=== PATIENT | male | born 1985 | race African-American/Black ===

== ENCOUNTER 2022-04-21 16:06 | Inpatient (IN) | payer OTHER ==
[~2022-04-21] VITALS: Ht 185.4 cm; Wt 101.0 kg
[2022-04-21 17:34] LABS: BASOPHIL 0.9 % (0-2); EOSINOPHIL 0.2 % (0-5); HCT 48.5 % (42.0-52.0); LYMPHOCYTE 17.7 % (15-48); MONOCYTE 6.2 % (0-12); MPV 10.6 fL (6.0-9.5); NEUTROPHIL 74.5 % (41-80); NRBC 0; PLT 261 K/uL (150-400); RBC 5.51 M/uL (4.70-6.00); WBC 10.1 K/uL (4.0-10.5)
[2022-04-21 17:47] LABS: BILIRUBIN NEGATIVE (NEGATIVE); BLOOD 1+ Ery/uL (NEGATIVE); CLARITY CLEAR (CLEAR); COLOR YELLOW (YELLOW); GLUCOSE (U) 3+ mg/dL (NORMAL); LEUKOCYTES NEGATIVE Leu/uL (NEGATIVE); NITRITE NEGATIVE (NEGATIVE); PROTEIN 1+ mg/dL (NEGATIVE); SPECIFIC GRAVITY 1.025 (1.001-1.030); UROBILINOGEN 0.2 mg/dL (0.2-1.0)
[2022-04-21 18:04] LABS: BACTERIA TRACE; URINARY WBC RARE
[2022-04-21 18:40] LABS: BUN/CREAT RATIO (CALC) 22.9 RATIO; CREATININE 1.4 mg/dL (0.67-1.17); POTASSIUM 5.1 mmol/L (3.5-5.1)
[2022-04-21 21:09] LABS: BUN/CREAT RATIO (CALC) 22.6 RATIO; CREATININE 1.33 mg/dL (0.67-1.17); POTASSIUM 5.3 mmol/L (3.5-5.1)
[2022-04-21] MEDS ORDERED: CLARITIN10 MG PO (23:59)
[2022-04-22] MEDS ORDERED: CYCLOBENZAPRINE10 MG PO
[2022-04-22 00:42] LABS: BUN/CREAT RATIO (CALC) 20.6 RATIO; CREATININE 1.36 mg/dL (0.67-1.17); POTASSIUM 4.4 mmol/L (3.5-5.1)
[2022-04-22 05:44] LABS: BASOPHIL 0.4 % (0-2); EOSINOPHIL 0 % (0-5); HCT 46.6 % (42.0-52.0); HGB 15.1 g/dl (13.2-18.0); LYMPHOCYTE 9.3 % (15-48); MCH 28.8 pg (25.0-31.0); MCHC 32.4 g/dL (32.0-36.0); MCV 88.8 fL (78.0-100.0); MONOCYTE 6.2 % (0-12); MPV 10.9 fL (6.0-9.5); NEUTROPHIL 83.7 % (41-80); NRBC 0; PLT 282 K/uL (150-400); RBC 5.25 M/uL (4.70-6.00); RDW 12.2 % (11.5-14.0)
[2022-04-22 06:25] LABS: BUN/CREAT RATIO (CALC) 18.2 RATIO; CREATININE 1.48 mg/dL (0.67-1.17); POTASSIUM 5.7 mmol/L (3.5-5.1)
[2022-04-22 12:29] LABS: ALBUMIN 3.7 g/dL (3.4-5.0); BILIRUBIN - TOTAL 0.6 mg/dL (0.2-1.0); BUN/CREAT RATIO (CALC) 15.8 RATIO; CREATININE 1.39 mg/dL (0.67-1.17); GLOBULIN (CALCULATION) 3.7 g/dL; MAGNESIUM 2.1 mg/dL (1.8-2.4); PHOSPHORUS 2.7 mg/dL (2.6-4.7); POTASSIUM 4.3 mmol/L (3.5-5.1); TOTAL PROTEIN 7.4 g/dL (6.4-8.2)
[2022-04-22 18:36] LABS: BUN/CREAT RATIO (CALC) 14.3 RATIO; CREATININE 1.19 mg/dL (0.67-1.17); POTASSIUM 3.8 mmol/L (3.5-5.1)
[2022-04-23 02:28] LABS: BUN/CREAT RATIO (CALC) 14.3 RATIO; CREATININE 1.05 mg/dL (0.67-1.17); POTASSIUM 3.5 mmol/L (3.5-5.1)
[2022-04-23 05:55] LABS: BASOPHIL 0.6 % (0-2); EOSINOPHIL 2.1 % (0-5); HCT 40.9 % (42.0-52.0); HGB 13.6 g/dl (13.2-18.0); LYMPHOCYTE 25.3 % (15-48); MCH 28.9 pg (25.0-31.0); MCHC 33.3 g/dL (32.0-36.0); MONOCYTE 8.1 % (0-12); MPV 10.1 fL (6.0-9.5); NEUTROPHIL 63.4 % (41-80); NRBC 0; PLT 193 K/uL (150-400); RDW 12.3 % (11.5-14.0); WBC 6.2 K/uL (4.0-10.5)
[2022-04-23 07:04] LABS: BUN/CREAT RATIO (CALC) 13.5 RATIO; CREATININE 0.96 mg/dL (0.67-1.17); POTASSIUM 3.3 mmol/L (3.5-5.1)
[2022-04-23] MEDS ORDERED: NOVOLOG VI100 UNIT/1 SQ (09:25)
== END 2022-04-23 10:51 | disposition home or self-care (01) | DRG 637 ==
LOC: FER 16:06 → FICU 21:45
PROVIDERS: Internal Medicine; Nurse Practitioner Acute Care; Nurse Practitioner Family; ADMIT Internal Medicine
DX: E10.10 Type 1 diabetes mellitus with ketoacidosis without coma (principal); R65.11 Systemic inflammatory response syndrome (SIRS) of non-infectious origin with acute organ dysfunction; N17.9 Acute kidney failure, unspecified; E87.5 Hyperkalemia; Z98.1 Arthrodesis status; Z28.310 Unvaccinated for COVID-19; Z83.3 Family history of diabetes mellitus; Z87.891 Personal history of nicotine dependence; Z79.899 Other long term (current) drug therapy
CPT/HCPCS: 36415; 36600; 80048; 80053; 81001; 82009; 82803; 82962; 83036; 83735; 84100; 85025; J1650; J2405; J2550; J7030